=== PATIENT | female | born 1950 | race Caucasian/White ===

== ENCOUNTER → 2018-01-17 10:17 | Outpatient (CLI) | payer OTHER, SELFPAY ==
--- NOTE | 2018-01-17 | DI.MG.S_ITS ---
BILATERAL DIGITAL SCREENING MAMMOGRAM 3D/2D WITH CAD: 01/17/2018 CLINICAL: Routine screening. Family history of breast cancer. Comparison is made to exams dated: 01/10/2017 mammogram, 01/06/2016 mammogram, and 01/02/2015 mammogram - [facility]. The tissue of both breasts is heterogeneously dense. This may lower the sensitivity of mammography. Current study was also evaluated with a Computer Aided Detection (CAD) system. No significant masses, calcifications, or other findings are seen in either breast. There has been no significant interval change. IMPRESSION: NEGATIVE There is no mammographic evidence of malignancy. A 1 year screening mammogram is recommended. This exam was interpreted at Station ID: [id number]. NOTE: For mammograms, a report in lay terms will be sent to the patient. Approximately 15% of breast malignancies will not be visualized mammographically. In the management of a palpable breast mass, a negative mammogram must not discourage biopsy of a clinically suspicious lesion. Electronically Signed By: Stepan curry/triston:01/17/2018 19:07:55 copy to: Lily Ferris letter sent: Normal Exam ACR BI-RADS Category 1: Negative 3341F
== END ==
PROVIDERS: Family Provider Specialist; PCP Family Medicine; Visit Provider Family Medicine
DX: Z12.31 Encounter for screening mammogram for malignant neoplasm of breast (principal); Z80.3 Family history of malignant neoplasm of breast
CPT/HCPCS: 77063; 77067

== ENCOUNTER → 2018-12-29 07:33 | Outpatient (CLI) | payer OTHER, SELFPAY ==
[2018-12-29 08:58] LABS: Add Manual Diff / Slide Review NO; Basophils Absolute Auto 0 /uL (0-100); Basophils Percent Auto 0.3 % (0-2); Eosinophils Absolute Auto 100 /uL (0-450); Eosinophils Percent Auto 1.4 % (2-4); Hematocrit 35.7 % (36-46); Hemoglobin 12.8 g/dL (12.0-16.0); Lymphocytes Absolute Auto 600 /uL (1100-4500); Lymphocytes Percent Auto 10.9 % (25-40); Mean Corpuscular HGB Conc 35.7 % (30-36); Mean Corpuscular Hemoglobin 34.3 PG (26-34); Monocytes Absolute Auto 300 /uL (0-900); Monocytes Percent Auto 5.8 % (3-14); Neutrophils Absolute Auto 4400 /uL (1500-7000); Neutrophils Percent Auto 81.6 % (50-75); Platelet Count 296 X10^3/uL (150-400); Red Blood Cell Count 3.72 X10^6/uL (4.0-5.2); Red Cell Distribution Width 12.1 % (11.6-14.8); White Blood Cell Count 5.4 X10^3/uL (4.5-11.0)
[2018-12-29 08:59] LABS: Alanine Aminotransferase 20 IU/L (<35); Albumin 4.6 g/dL (3.5-5.0); Albumin Globulin Ratio 1.6 (1.0-2.8); Alkaline Phosphatase 67 U/L (38-126); Aspartate Aminotransferase 33 IU/L (14-36); BUN Creatinine Ratio 18.8 (6-22); Bilirubin Total 2.1 mg/dL (0.2-1.3); Blood Urea Nitrogen 15 mg/dL (7-17); Calcium 9.6 mg/dL (8.4-10.2); Carbon Dioxide 28 mmol/L (22-32); Chloride 105 mmol/L (98-107); Cholesterol 228 mg/dL (140-199); Estimated Glomerular Filt Rate > 60.0 mL/min (>60); Globulin 2.9 g/dL (1.7-4.1); Glucose 103 mg/dL (80-110); HDL Cholesterol 59 mg/dL (40-60); HEMOLYSIS < 15 (0-50); LDL Cholesterol Calculated 146 mg/dL (<100); Potassium 3.9 mmol/L (3.4-5.1); Sodium 140 mmol/L (137-145); Total Protein 7.5 g/dL (6.3-8.2); Triglycerides 117 mg/dL (35-150)
[2018-12-29 10:01] LABS: Thyroid Stimulating Hormone 3.53 uIU/mL (0.47-4.68)
[2018-12-29 14:29] LABS: Vitamin D 25 Hydroxy (D3) 38.5 ng/mL (30.0-100.0)
== END ==
PROVIDERS: PCP Family Medicine; Visit Provider Family Medicine
DX: Z13.220 Encounter for screening for lipoid disorders (principal); I10 Essential (primary) hypertension; R53.83 Other fatigue; M81.0 Age-related osteoporosis without current pathological fracture
CPT/HCPCS: 36415; 80053; 80061; 82306; 84443; 85025

== ENCOUNTER → 2019-01-10 11:21 | Outpatient (CLI) | payer OTHER, SELFPAY ==
[2019-01-10 12:39] LABS: Prothrombin Time 10.9 SECONDS (10.1-12.7)
[2019-01-10 12:41] LABS: PTT Partial Thromboplastin Tim 38 SECONDS (26.4-36.2)
[2019-01-10 12:47] LABS: Alanine Aminotransferase 17 IU/L (<35); Albumin 4.6 g/dL (3.5-5.0); Albumin Globulin Ratio 1.6 (1.0-2.8); Alkaline Phosphatase 61 U/L (38-126); Aspartate Aminotransferase 33 IU/L (14-36); BUN Creatinine Ratio 24.3 (6-22); Bilirubin Direct 0.2 mg/dL (0.0-0.4); Bilirubin Total 1.3 mg/dL (0.2-1.3); Blood Urea Nitrogen 17 mg/dL (7-17); Calcium 9.3 mg/dL (8.4-10.2); Carbon Dioxide 27 mmol/L (22-32); Chloride 104 mmol/L (98-107); Estimated Glomerular Filt Rate > 60.0 mL/min (>60); Globulin 2.9 g/dL (1.7-4.1); Glucose 99 mg/dL (80-110); HEMOLYSIS < 15 (0-50); Potassium 4.1 mmol/L (3.4-5.1); Sodium 139 mmol/L (137-145); Total Protein 7.5 g/dL (6.3-8.2)
== END ==
PROVIDERS: PCP Family Medicine; Visit Provider Family Medicine
DX: R17 Unspecified jaundice (principal)
CPT/HCPCS: 36415; 80053; 82248; 85610; 85730

== ENCOUNTER → 2019-01-18 10:44 | Outpatient (CLI) | payer OTHER, SELFPAY ==
--- NOTE | 2019-01-18 | DI.MG.S_ITS ---
BILATERAL DIGITAL SCREENING MAMMOGRAM 3D/2D WITH CAD: 01/18/2019 CLINICAL: Routine screening. Family history of breast cancer. Comparison is made to exams dated: 01/17/2018 mammogram, 01/10/2017 mammogram, 01/06/2016 mammogram, 01/02/2015 mammogram, and 12/27/2013 mammogram - [facility]. There are scattered fibroglandular elements in both breasts. Current study was also evaluated with a Computer Aided Detection (CAD) system. No significant masses, calcifications, or other findings are seen in either breast. There has been no significant interval change. IMPRESSION: NEGATIVE There is no mammographic evidence of malignancy. A 1 year screening mammogram is recommended. This exam was interpreted at Station ID: [id number]. NOTE: For mammograms, a report in lay terms will be sent to the patient. Approximately 15% of breast malignancies will not be visualized mammographically. In the management of a palpable breast mass, a negative mammogram must not discourage biopsy of a clinically suspicious lesion. Electronically Signed By: Rajinder hale/triston:01/18/2019 13:44:05 copy to: Lily Ferris letter sent: Normal Exam ACR BI-RADS Category 1: Negative 3341F
== END ==
PROVIDERS: Family Provider Specialist; PCP Family Medicine; Visit Provider Family Medicine
DX: Z12.31 Encounter for screening mammogram for malignant neoplasm of breast (principal); Z80.3 Family history of malignant neoplasm of breast
CPT/HCPCS: 77063; 77067

== ENCOUNTER → 2019-05-04 09:21 | Outpatient (CLI) | payer OTHER, SELFPAY ==
--- NOTE | 2019-05-04 09:24 | DI.RAD.S_ITS ---
PROCEDURE: XR KNEE RT 3V INDICATIONS: right knee pain with clicking TECHNIQUE: 3 views of the knee were acquired. COMPARISON: [facility], , KNEE 3V RIGHT, 01/06/2013, 21:36. FINDINGS: Bones: No fractures or dislocations. No suspicious bony lesions. Minimal medial joint space narrowing Soft tissues: Trace joint effusion. No suspicious soft tissue calcifications. IMPRESSION: Minimal joint degeneration as above otherwise unremarkable examination as above. If the patient's pain or other symptoms persist, consider further evaluation with MRI Dictated by: Mitchell Terry M.D. on 05/04/2019 at 11:34 Approved by: Mitchell Terry M.D. on 05/04/2019 at 11:36
== END ==
PROVIDERS: PCP Family Medicine; Referring Provider Family Medicine; Visit Provider Family Medicine
DX: M25.561 Pain in right knee (principal)
CPT/HCPCS: 73562

== ENCOUNTER → 2019-09-19 17:36 | Outpatient (CLI) | payer OTHER, SELFPAY | PROVIDERS: PCP Family Medicine; Visit Provider Specialist | DX: R30.0 Dysuria (principal) | CPT/HCPCS: 87086 ==

== ENCOUNTER → 2019-10-02 11:46 | Outpatient (CLI) | payer OTHER, SELFPAY ==
[2019-10-02 11:50] LABS: Bacteria Urine None Seen; RBC Urine None Seen (0-5/HPF)
[2019-10-02 12:17] LABS: Appearance Urine UA CLEAR; Bilirubin Urine UA NEGATIVE (NEGATIVE); Color Urine UA YELLOW; Glucose Urine UA NEGATIVE (Negative); Ketones Urine UA NEGATIVE (NEGATIVE); Leukocyte Esterase Urine UA NEGATIVE (NEGATIVE); Nitrite Urine UA NEGATIVE (Negative); Occult Blood Urine UA NEGATIVE (Negative); Protein Urine UA NEGATIVE (Negative); Specific Gravity Urine UA 1.015 (1.000-1.035); Urobilinogen Urine UA 0.2 E.U./dL (0.2)
[2019-10-02 12:33] LABS: WBC Urine 0-1/HPF (0-5/HPF)
[2019-10-02 12:34] LABS: Culture Indicated Urine Cult Not Indicated; Mucus Urine 1+ (Negative); Squamous Epithelial Cell Urine 1-5 /HPF (0-5/HPF)
== END ==
PROVIDERS: PCP Family Medicine; Referring Provider Family Medicine; Visit Provider Family Medicine
DX: R30.0 Dysuria (principal)
CPT/HCPCS: 81001

== ENCOUNTER → 2019-10-09 12:25 | Outpatient (CLI) | payer OTHER, SELFPAY ==
--- NOTE | 2019-10-09 12:28 | DI.MRI.S_ITS ---
BREAST MRI OF BOTH BREASTS- WITH CAD: 10/09/2019 CLINICAL: Nipple discharge. TECHNIQUE: The patient was placed prone in a dedicated breast imaging coil. Precontrast axial STIR and 3D FLASH without fat saturation sequences were obtained. Both before and after bolus injection of contrast, sequential 1-minute axial 3D FLASH with fat saturation sequences for 3 time points, with subtraction images and maximum intensity projections (MIP's) generated. Delayed sagittal FLASH images with fat saturation were also obtained. Gadolinium contrast calibrated to patient weight was injected. Comparison: 08/28/2019 ultrasound, 08/28/2019 mammogram - [facility], 01/18/2019 mammogram, and 01/17/2018 mammogram - [facility]. Interpretation of this MRI was correlated with provided clinical information. FINDINGS: Image quality: Excellent. There is symmetric mild background parenchymal enhancement. Right breast: No abnormally dilated ducts identified. No mass or non masslike enhancement. Normal appearance of the nipple areola complex. No areas of skin thickening or neovascularity. No internal mammary or axillary lymphadenopathy. Left breast: No abnormally dilated ducts identified. No mass or non masslike enhancement. Normal appearance of the nipple areola complex. No areas of skin thickening or neovascularity. No internal mammary or axillary lymphadenopathy. Miscellaneous: Anterior chest wall anterior liver demonstrate no evidence of abnormal enhancement. IMPRESSION: NEGATIVE No suspicious findings to indicate malignancy. No explanation for nipple discharge. Annual screening mammography recommended per ACS/ACR guidelines. BIRADS 1. COMMENT: The imaging literature indicates that a negative contrast breast MRI examination has a high sensitivity and a moderate specificity for detecting and excluding invasive carcinomas to a detection threshold of 3-5 mm; nonetheless, appropriate clinical and mammographic follow-up are recommended. MRI is not sensitive for detecting DCIS (ductal carcinoma in situ) and may not detect large invasive neoplasms that show only minimal enhancement such as mucinous carcinoma. If there are suspicious calcifications or clinically worrisome palpable masses, then biopsy should still be considered. Invasive neoplasms can be hidden by co-existent and benign enhancement caused by mastitis, hormone therapy effects, radiation therapy, , and recent biopsy or surgery. False positive examinations can occur in a number of circumstances, including breasts that have recently been subject to invasive procedures and those that contain atypical ductal hyperplasia, hormonally stimulated glandular tissue, fat necrosis, or radial scars. This exam was interpreted at Station ID: [id number]. Electronically Signed By: Sebastian Brown M.D. jr/:10/09/2019 14:56:40 copy to: Lily Ferris letter sent: Normal Exam ACR BI-RADS Category 1: Negative 3341F
== END ==
PROVIDERS: PCP Family Medicine; Referring Provider Family Medicine; Visit Provider Family Medicine
DX: N64.52 Nipple discharge (principal)
CPT/HCPCS: 77049; A9579

== ENCOUNTER → 2020-10-09 11:07 | Outpatient (CLI) | payer OTHER, SELFPAY ==
--- NOTE | 2020-10-09 | DI.MG.S_ITS ---
BILATERAL DIGITAL SCREENING MAMMOGRAM 3D/2D WITH CAD: 10/09/2020 CLINICAL: Routine screening. Family history of breast cancer. Comparison is made to exams dated: 10/09/2019 breast MRI - [facility], 08/28/2019 mammogram - [facility], and 01/18/2019 mammogram - [facility]. There are scattered fibroglandular elements in both breasts. Current study was also evaluated with a Computer Aided Detection (CAD) system. There is a mole marker on the right breast. No significant masses, calcifications, or other findings are seen in either breast. There has been no significant interval change. IMPRESSION: NEGATIVE There is no mammographic evidence of malignancy. A 1 year screening mammogram is recommended. This exam was interpreted at Station ID: [id number]. NOTE: For mammograms, a report in lay terms will be sent to the patient. Approximately 15% of breast malignancies will not be visualized mammographically. In the management of a palpable breast mass, a negative mammogram must not discourage biopsy of a clinically suspicious lesion. Electronically Signed By: Tho Germain acr/penrad:10/09/2020 12:25:54 copy to: Lily Ferris letter sent: Normal Exam ACR BI-RADS Category 1: Negative 3341F
== END ==
PROVIDERS: PCP Family Medicine; Referring Provider Family Medicine; Visit Provider Family Medicine
DX: Z12.31 Encounter for screening mammogram for malignant neoplasm of breast (principal); Z80.3 Family history of malignant neoplasm of breast
CPT/HCPCS: 77063; 77067

== ENCOUNTER → 2021-03-27 06:44 | Outpatient (CLI) | payer OTHER, SELFPAY ==
[2021-03-27 08:15] LABS: Add Manual Diff / Slide Review NO; Basophils Absolute Auto 0 /uL (0-100); Basophils Percent Auto 0.7 % (0-2); Eosinophils Absolute Auto 100 /uL (0-450); Eosinophils Percent Auto 3.1 % (2-4); Hematocrit 36.1 % (36-46); Hemoglobin 12.2 g/dL (12.0-16.0); Lymphocytes Absolute Auto 1100 /uL (1100-4500); Lymphocytes Percent Auto 37.6 % (25-40); Mean Corpuscular HGB Conc 33.7 % (30-36); Mean Corpuscular Hemoglobin 31.9 PG (26-34); Mean Corpuscular Volume 94.6 fL (80-100); Monocytes Absolute Auto 400 /uL (0-900); Monocytes Percent Auto 11.8 % (3-14); Neutrophils Absolute Auto 1400 /uL (1500-7000); Neutrophils Percent Auto 46.8 % (50-75); Platelet Count 288 X10^3/uL (150-400); Red Blood Cell Count 3.82 X10^6/uL (4.0-5.2); Red Cell Distribution Width 12.5 % (11.6-14.8)
[2021-03-27 08:37] LABS: Alanine Aminotransferase 18 IU/L (<35); Albumin 4.4 g/dL (3.5-5.0); Albumin Globulin Ratio 1.4 (1.0-2.8); Alkaline Phosphatase 52 U/L (38-126); Aspartate Aminotransferase 33 IU/L (14-36); BUN Creatinine Ratio 18.8 (6-22); Bilirubin Total 1.5 mg/dL (0.2-1.3); Blood Urea Nitrogen 15 mg/dL (7-17); Calcium 9.4 mg/dL (8.4-10.2); Carbon Dioxide 29 mmol/L (22-32); Chloride 107 mmol/L (98-107); Cholesterol 214 mg/dL (140-199); Estimated Glomerular Filt Rate > 60.0 mL/min (>60); Globulin 3.1 g/dL (1.7-4.1); Glucose 92 mg/dL (80-110); HDL Cholesterol 71 mg/dL (40-60); HEMOLYSIS < 15 (0-50); LDL Cholesterol Calculated 118 mg/dL (<100); Potassium 3.9 mmol/L (3.4-5.1); Sodium 140 mmol/L (137-145); Total Protein 7.5 g/dL (6.3-8.2); Triglycerides 123 mg/dL (35-150)
[2021-03-27 09:03] LABS: TSH w/ Reflex to FT4 5.35 uIU/mL (0.47-4.68)
[2021-03-27 09:08] LABS: Creatinine Urine Random 107.3 mg/dL
[2021-03-27 09:15] LABS: Microalbumin Urine Random 2.8 mg/dL (0-1.6)
[2021-03-27 10:15] LABS: Free T4, Direct Thyroxine 0.92 ng/dL (0.78-2.19)
== END ==
PROVIDERS: PCP Family Medicine; Referring Provider Family Medicine; Visit Provider Family Medicine
DX: I10 Essential (primary) hypertension (principal)
CPT/HCPCS: 36415; 80053; 80061; 82043; 82570; 84439; 84443; 85025

== ENCOUNTER → 2021-04-01 07:00 | Outpatient (CLI) | payer OTHER, SELFPAY ==
--- NOTE | 2021-04-01 07:02 | DI.US.S_ITS ---
PROCEDURE: US CAROTID DOPPLER BI INDICATIONS: Stenosis TECHNIQUE: Color and pulse Doppler interrogation was performed of both carotid systems, with image documentation and velocity measurements. COMPARISON: None. FINDINGS: Stenosis calculations are based on SRU (Society of Radiologists in Ultrasound) criteria. Right side: Brachial blood pressure: 168/62 mm Hg. Common carotid artery peak systolic velocity: 78 cm/sec. Internal carotid artery peak systolic velocity: 74 cm/sec. Internal carotid artery end diastolic velocity: 22 cm/sec. External carotid artery peak systolic velocity: 56 cm/sec. ICA/CCA peak systolic ratio: 1.0. Cabrera scale imaging description: No significant plaque. Percent internal carotid artery stenosis: Normal. Vertebral artery: Flow direction is antegrade. Left side: Brachial blood pressure: 166/67 mm Hg. Common carotid artery peak systolic velocity: 100 cm/sec. Internal carotid artery peak systolic velocity: 74 cm/sec. Internal carotid artery end diastolic velocity: 26 cm/sec. External carotid artery peak systolic velocity: 68 cm/sec. ICA/CCA peak systolic ratio: 0.7. Cabrera scale imaging description: No significant plaque. Percent internal carotid artery stenosis: Normal. Vertebral artery: Flow direction is antegrade. IMPRESSION: Normal velocities of the ICAs. No significant plaque. Antegrade flow in the vertebral arteries. Dictated by: Rajinder Mazariegos M.D. on 04/01/2021 at 9:13 Approved by: Rajinder Mazariegos M.D. on 04/01/2021 at 9:17
== END ==
PROVIDERS: PCP Family Medicine; Referring Provider Family Medicine; Visit Provider Family Medicine
DX: I65.29 Occlusion and stenosis of unspecified carotid artery (principal)
CPT/HCPCS: 93880

== ENCOUNTER → 2021-04-07 07:35 | Outpatient (CLI) | payer OTHER, SELFPAY ==
--- NOTE | 2021-04-07 07:36 | DI.US.S_ITS ---
PROCEDURE: US ABDOMEN LIMITED INDICATIONS: ELEVATED BILIRUBIN TECHNIQUE: Real-time focused scanning was performed of the abdomen, with image documentation. COMPARISON: None. FINDINGS: The liver is normal in size and demonstrates no focal lesions. No findings of gallstones or sludge are seen. The gallbladder wall is not thickened, measuring 3 mm or less. No specific pericholecystic fluid is seen. The sonographic Taylor sign is negative. There is no biliary dilatation, the common bile duct measures 5 mm. No significant pancreatic abnormality is seen on these images. IMPRESSION: No significant abnormality is seen to explain the patient's presenting history. Normal appearing liver. The gallbladder demonstrates a normal sonographic appearance. No biliary dilatation is seen. Dictated by: Jassi Borja M.D. on 04/07/2021 at 8:52 Approved by: Jassi Borja M.D. on 04/07/2021 at 8:53
== END ==
PROVIDERS: PCP Family Medicine; Referring Provider Family Medicine; Visit Provider Family Medicine
DX: R17 Unspecified jaundice (principal)
CPT/HCPCS: 76705

== ENCOUNTER → 2021-04-30 08:30 | Outpatient (CLI) | payer OTHER, SELFPAY ==
[2021-04-30 09:12] LABS: Add Manual Diff / Slide Review NO; Basophils Absolute Auto 0 /uL (0-100); Basophils Percent Auto 1.2 % (0-2); Eosinophils Absolute Auto 100 /uL (0-450); Eosinophils Percent Auto 3.6 % (2-4); Hematocrit 34.8 % (36-46); Lymphocytes Absolute Auto 1100 /uL (1100-4500); Lymphocytes Percent Auto 35.2 % (25-40); Mean Corpuscular HGB Conc 34.6 % (30-36); Mean Corpuscular Hemoglobin 32.3 PG (26-34); Mean Corpuscular Volume 93.3 fL (80-100); Monocytes Absolute Auto 300 /uL (0-900); Monocytes Percent Auto 10.2 % (3-14); Neutrophils Absolute Auto 1500 /uL (1500-7000); Neutrophils Percent Auto 49.8 % (50-75); Platelet Count 289 X10^3/uL (150-400); Red Blood Cell Count 3.72 X10^6/uL (4.0-5.2); Red Cell Distribution Width 12.1 % (11.6-14.8); White Blood Cell Count 3.1 X10^3/uL (4.5-11.0)
[2021-04-30 09:27] LABS: Alanine Aminotransferase 17 IU/L (<35); Albumin 4.7 g/dL (3.5-5.0); Albumin Globulin Ratio 1.7 (1.0-2.8); Alkaline Phosphatase 49 U/L (38-126); Aspartate Aminotransferase 30 IU/L (14-36); BUN Creatinine Ratio 18.5 (6-22); Bilirubin Total 1.3 mg/dL (0.2-1.3); Blood Urea Nitrogen 15 mg/dL (7-17); Calcium 9.4 mg/dL (8.4-10.2); Carbon Dioxide 26 mmol/L (22-32); Chloride 106 mmol/L (98-107); Estimated Glomerular Filt Rate > 60.0 mL/min (>60); Globulin 2.8 g/dL (1.7-4.1); Glucose 99 mg/dL (80-110); HEMOLYSIS < 15 (0-50); Sodium 140 mmol/L (137-145); Total Protein 7.5 g/dL (6.3-8.2)
== END ==
PROVIDERS: PCP Family Medicine; Referring Provider Family Medicine; Visit Provider Family Medicine
DX: I10 Essential (primary) hypertension (principal); E80.6 Other disorders of bilirubin metabolism; D72.819 Decreased white blood cell count, unspecified
CPT/HCPCS: 36415; 80053; 85025

== ENCOUNTER → 2021-10-19 08:59 | Outpatient (CLI) | payer OTHER, SELFPAY ==
--- NOTE | 2021-10-19 | DI.MG.S_ITS ---
BILATERAL DIGITAL SCREENING MAMMOGRAM 3D/2D WITH CAD: 10/19/2021 CLINICAL: Routine screening. Family history of breast cancer. Comparison is made to exams dated: 10/09/2020 mammogram, 10/09/2019 breast MRI - [facility], 08/28/2019 mammogram - [facility], 01/18/2019 mammogram, and 01/17/2018 mammogram - [facility]. There are scattered fibroglandular elements in both breasts. Current study was also evaluated with a Computer Aided Detection (CAD) system. There is a mole marker on the right breast. No significant masses, calcifications, or other findings are seen in either breast. There has been no significant interval change. IMPRESSION: NEGATIVE There is no mammographic evidence of malignancy. A 1 year screening mammogram is recommended. Based on the Tyrer Cuzick model (a risk assessment model) the patient's lifetime risk is 10.1% and her 10 year risk is 6.4%. According to the ACR, ACS, and NCCN guidelines, an annual breast MRI exam along with mammogram is recommended if the patient's lifetime risk is 20% or greater. This exam was interpreted at Station ID: [id number]. NOTE: For mammograms, a report in lay terms will be sent to the patient. Approximately 15% of breast malignancies will not be visualized mammographically. In the management of a palpable breast mass, a negative mammogram must not discourage biopsy of a clinically suspicious lesion. Electronically Signed By: Filipe yanes/triston:10/19/2021 12:30:16 copy to: Lily Ferris letter sent: Normal Exam ACR BI-RADS Category 1: Negative 3341F
== END ==
PROVIDERS: PCP Family Medicine; Referring Provider Family Medicine; Visit Provider Family Medicine
DX: Z12.31 Encounter for screening mammogram for malignant neoplasm of breast (principal); Z80.3 Family history of malignant neoplasm of breast
CPT/HCPCS: 77063; 77067

== ENCOUNTER → 2021-12-14 14:25 | Outpatient (CLI) | payer OTHER, SELFPAY ==
--- NOTE | 2021-12-14 14:35 | DI.US.S_ITS ---
ULTRASOUND OF RIGHT BREAST: 12/14/2021 CLINICAL: Palpable right axilla lump. Comparison is made to exams dated: 10/19/2021 mammogram, 10/09/2020 mammogram, 10/09/2019 breast MRI - [facility], 08/28/2019 ultrasound, 08/28/2019 mammogram - [facility], and 01/18/2019 mammogram - [facility]. Color flow ultrasound of the right breast was performed on the areas of interest. Cabrera scale images of the real-time examination were reviewed. IMPRESSION: NEGATIVE There is no sonographic evidence of malignancy. There is no sonographic abnormality seen in the right axilla to correspond with the palpable abnormality in the right axilla, however, clinical followup is recommended. Return to annual mammogram screening schedule is recommended. Future imaging is recommended as follows: 10/20/2022 screening mammogram. This exam was interpreted at Station ID: [id number]. Electronically Signed By: Tea bae/triston:12/22/2021 15:43:48 copy to: Lily Ferris letter sent: Clinical Evaluation Ultrasound BI-RADS: 1 Negative
== END ==
PROVIDERS: PCP Family Medicine; Referring Provider Family Medicine; Visit Provider Family Medicine
DX: N63.31 Unspecified lump in axillary tail of the right breast
CPT/HCPCS: 76882

== ENCOUNTER → 2022-10-20 14:39 | Outpatient (CLI) | payer OTHER, SELFPAY ==
--- NOTE | 2022-10-20 | DI.MG.S_ITS ---
BILATERAL DIGITAL SCREENING MAMMOGRAM 3D/2D WITH CAD: 10/20/2022 CLINICAL: Routine screening. Family history of breast cancer. Comparison is made to exams dated: 10/19/2021 mammogram, 10/09/2020 mammogram - [facility], 08/28/2019 mammogram - [facility], and 01/18/2019 mammogram - [facility]. There are scattered areas of fibroglandular density in both breasts (category b / 25%-50% glandular tissue). Current study was also evaluated with a Computer Aided Detection (CAD) system. There is a mole marker on the right breast. No significant masses, calcifications, or other findings are seen in either breast. There has been no significant interval change. IMPRESSION: NEGATIVE There is no mammographic evidence of malignancy. A 1 year screening mammogram is recommended. Based on the Tyrer Cuzick model (a risk assessment model) the patient's lifetime risk is 9.5% and her 10 year risk is 6.6%. According to the ACR, ACS, and NCCN guidelines, an annual breast MRI exam along with mammogram is recommended if the patient's lifetime risk is 20% or greater. This exam was interpreted at Station ID: [id number]. NOTE: For mammograms, a report in lay terms will be sent to the patient. Approximately 15% of breast malignancies will not be visualized mammographically. In the management of a palpable breast mass, a negative mammogram must not discourage biopsy of a clinically suspicious lesion. Electronically Signed By: Rajinder hale/triston:10/21/2022 09:39:16 copy to: Lily Ferris letter sent: Normal Exam ACR BI-RADS Category 1: Negative 3341F
== END ==
PROVIDERS: PCP Family Medicine; Referring Provider Family Medicine; Visit Provider Family Medicine
DX: Z12.31 Encounter for screening mammogram for malignant neoplasm of breast (principal); Z80.3 Family history of malignant neoplasm of breast
CPT/HCPCS: 77063; 77067

== ENCOUNTER → 2023-02-02 06:43 | Outpatient (CLI) | payer OTHER, SELFPAY ==
[2023-02-02 08:04] LABS: Alanine Aminotransferase 27 IU/L (<35); Albumin 4.3 g/dL (3.5-5.0); Albumin Globulin Ratio 1.6 (1.0-2.8); Alkaline Phosphatase 53 U/L (38-126); Aspartate Aminotransferase 36 IU/L (14-36); BUN Creatinine Ratio 21.6 (6-22); Bilirubin Total 1.1 mg/dL (0.2-1.3); Blood Urea Nitrogen 16 mg/dL (7-17); Calcium 9.8 mg/dL (8.4-10.2); Carbon Dioxide 28 mmol/L (22-32); Chloride 104 mmol/L (98-107); Cholesterol 200 mg/dL (140-199); Estimated Glomerular Filt Rate > 60 mL/min (>60); Globulin 2.7 g/dL (1.7-4.1); Glucose 90 mg/dL (80-110); HDL Cholesterol 68 mg/dL (40-60); HEMOLYSIS < 15 (0-50); LDL Cholesterol Calculated 108 mg/dL (<100); Potassium 4.1 mmol/L (3.4-5.1); Sodium 140 mmol/L (137-145); Triglycerides 122 mg/dL (35-150)
[2023-02-02 08:34] LABS: TSH w/ Reflex to FT4 5.27 uIU/mL (0.47-4.68)
[2023-02-02 09:02] LABS: Free T4, Direct Thyroxine 0.86 ng/dL (0.78-2.19)
[2023-02-02 09:19] LABS: Creatinine Urine Random 147.8 mg/dL
[2023-02-02 09:25] LABS: Microalbumi Creatinin Ratio Ur 8.1 ug/mg CR (<30); Microalbumin Urine Random 1.2 mg/dL (0-1.6)
== END ==
PROVIDERS: PCP Family Medicine; Referring Provider Family Medicine; Visit Provider Family Medicine
DX: E03.8 Other specified hypothyroidism (principal); I10 Essential (primary) hypertension
CPT/HCPCS: 36415; 80053; 80061; 82043; 82570; 84439; 84443

== ENCOUNTER → 2023-11-11 08:18 | Outpatient (CLI) | payer OTHER, SELFPAY ==
--- NOTE | 2023-11-11 | DI.MG.S_ITS ---
BILATERAL DIGITAL SCREENING MAMMOGRAM 3D/2D WITH CAD: 11/11/2023 CLINICAL: Routine screening. Family history of breast cancer. Comparison is made to exams dated: 10/20/2022 mammogram, 10/19/2021 mammogram, and 10/09/2020 mammogram - [facility]. There are scattered areas of fibroglandular density (category b / 25%-50% glandular tissue). Current study was also evaluated with a Computer Aided Detection (CAD) system. No significant masses, calcifications, or other findings are seen in either breast. There has been no significant interval change. IMPRESSION: NEGATIVE There is no mammographic evidence of malignancy. A 1 year screening mammogram is recommended. Based on the Tyrer Cuzick model (a risk assessment model) the patient's lifetime risk is 9.0% and her 10 year risk is 6.8%. According to the ACR, ACS, and NCCN guidelines, an annual breast MRI exam along with mammogram is recommended if the patient's lifetime risk is 20% or greater. This exam was interpreted at Station ID: [id number]. NOTE: For mammograms, a report in lay terms will be sent to the patient. Approximately 15% of breast malignancies will not be visualized mammographically. In the management of a palpable breast mass, a negative mammogram must not discourage biopsy of a clinically suspicious lesion. Electronically Signed By: Tori Yañze M.D., Ph.D. curt/triston:11/11/2023 09:43:29 copy to: Lily Ferris letter sent: Normal Exam ACR BI-RADS Category 1: Negative 3341F
== END ==
LOC: MAMMO 08:18
PROVIDERS: PCP Family Medicine; Referring Provider Family Medicine; Visit Provider Family Medicine
DX: Z12.31 Encounter for screening mammogram for malignant neoplasm of breast (principal); Z80.3 Family history of malignant neoplasm of breast
CPT/HCPCS: 77063; 77067

== ENCOUNTER → 2024-11-26 14:59 | Outpatient (CLI) | payer OTHER, SELFPAY ==
--- NOTE | 2024-11-26 15:00 | DI.MG.S_ITS ---
MM screening mammo BI: 11/26/2024. BI-RADS: 1 CLINICAL: 74-year old female for bilateral screening mammogram. Tyrer-Cuzick lifetime risk of 5.5%. No personal or first-degree family history of breast cancer. Current reported family history of breast cancer: maternal aunt and paternal aunt. The patient reports testing negative for BRCA gene mutation. PRIOR EXAMS 11/11/2023, 10/20/2022, 12/14/2021, 10/19/2021, 10/09/2020, MAMMOGRAPHY TECHNIQUE: 2D and 3D (tomosynthesis) digital mammographic views obtained, with additional images as needed for full coverage. Current study was also evaluated with a Computer Aided Detection (CAD) system. DENSITY B. There are scattered areas of fibroglandular density. MAMMOGRAPHY FINDINGS Bilateral: No suspicious mass, asymmetry, microcalcification, or other abnormality seen. IMPRESSION: * No evidence of malignancy. RECOMMENDATIONS Bilateral * Annual screening mammography. OVERALL ASSESSMENT CATEGORY BI-RADS-1: Negative. The [employer] recommends annual screening mammography beginning at age 40 for women with average risk of breast cancer. ELECTRONICALLY SIGNED: José Miguel Wei M.D. on 11/27/2024 at 09:56:07 AM PT Interpreting Station ID: [id number]
== END ==
LOC: MAMMO 15:00
PROVIDERS: PCP Family Medicine; Referring Provider Family Medicine; Visit Provider Family Medicine
DX: Z12.31 Encounter for screening mammogram for malignant neoplasm of breast (principal); Z80.3 Family history of malignant neoplasm of breast
CPT/HCPCS: 77063; 77067